=== PATIENT | female | born 1955 | race Caucasian/White ===

== ENCOUNTER 2017-11-12 08:55 | Emergency (ER) | payer OTHER ==
[~2017-11-12] VITALS: Ht 165.1 cm; Wt 60.0 kg
[2017-11-12 09:03] VITALS: TEMP 36.4; Ht 165.1 cm; Wt 60.0 kg
[2017-11-12 09:06] VITALS: O2SAT 100
[2017-11-12] MEDS ORDERED: MECLIZINE HCL 25 MG TAB PO STA (09:43)
--- NOTE | 2017-11-12 09:44 | EMERGENCY ROOM VISIT NOTE ---
History Report prepared by Shannen: Harshal Goldberg Under the Supervision of: Dr. Slime Stone M.D. First contact with patient: 09:13 Chief Complaint: DIZZY Stated Complaint: DIZZY, NOT FEELING WELL Nursing Triage Summary: pt reports sudden onset of dizziness, shaking and feeling like she was going to pass out at approx 0830 today while sitting eating cereal. pt reports she did not pass out. pt reports "i just don't feel like myself." History of Present Illness The patient is a 62 year old female who presents to the Emergency Room with complaints of sudden dizziness occurring around 0800 this morning while sitting and eating cereal. The patient states that she is still feeling dizzy and light headed. She says that she was seeing stars and was about to pass out, though she did not lose consciousness. The patient denies any palpitations, shortness of breath, recent travel, recent surgeries, history of blood clots, history of strokes, history of heart attacks, hematochezia, difficulty urinating, fever, chills, nausea, vomiting, and weakness. The patient states that she has no medical problems, and she has never had a stress test done. She reports that she fainted 3-4 months ago, and she states that she exercises daily. The patient has a history of osteoporosis and skin cancer on her face though was removed. She takes a baby aspirin daily. Source of History: patient Onset: 0800 Position: other (global) Quality: other (dizziness) Timing: other (sudden) Associated Symptoms: No LOC, No fevers, No chills, No SOB, No hematochezia Review of Systems See HPI for pertinent positives & negatives. A total of 10 systems reviewed and were otherwise negative. Past Medical & Surgical Medical Problems: (1) Osteoporosis (2) Skin cancer Family History Patient reports no known family medical history. Social History Smoking Status: Never Smoker Marital Status: Housing Status: lives with family Occupation Status: unemployed Current/Historical Medications Scheduled Aspirin (Aspirin Ec), 81 MG PO DAILY Biotin (Biotin), 2 TAB PO THUR Denosumab (Prolia), 6 MG INJ TWICE YEAR Oyster Shell (Calcium), 500 MG PO BID Scheduled PRN Meclizine HCl (Meclizine HCl), 1 TAB PO TID PRN for vertigo Allergies Coded Allergies: No Known Allergies (Unverified , 11/12/17) Physical Exam Vital Signs Date Time Temp Pulse Resp B/P (MAP) Pulse Ox O2 Delivery O2 Flow Rate FiO2 11/12/17 13:02 72 18 144/76 95 Room Air 11/12/17 11:58 78 18 131/69 95 Room Air 11/12/17 10:39 72 18 144/75 95 Room Air 11/12/17 09:56 73 152/83 72 129/67 72 117/73 11/12/17 09:07 78 11/12/17 09:06 100 Room Air 11/12/17 09:03 36.4 78 18 140/118 99 Room Air Physical Exam Vital signs reviewed. General: Well-appearing female, in no significant distress. HEENT: No scleral icterus, PERRLA, neck supple. Atraumatic. Cardiovascular: Regular rate and rhythm, no extra sounds. Pulmonary: Clear to auscultation bilaterally, normal work of breathing. Abdomen: Soft, nontender, nondistended, positive bowel sounds. Musculoskeletal: Atraumatic, no peripheral edema. Neurologic: Patient awake alert and oriented x 3, full strength in all 4 extremities. Cranial nerves 2 through 12 grossly intact. Skin: Warm, dry, no rash Medical Decision & Procedures ER Provider Diagnostic Interpretation: Radiology results as stated below per my review and radiologist interpretation: CHEST ONE VIEW PORTABLE CLINICAL HISTORY: dizzy, near syncope dyspnea COMPARISON STUDY: No previous studies for comparison. FINDINGS: The bones soft tissues and hemidiaphragms are normal. The cardiomediastinal silhouette is normal. The lungs are clear. The pulmonary vasculature is normal. IMPRESSION: Negative chest. The above report was generated using voice recognition software. It may contain grammatical, syntax or spelling errors. Electronically signed by: Davy Blanco M.D. 11/12/2017 9:58 AM Dictated Date/Time: 11/12/2017 9:[address]AST CT DOSE: 537.48 mGy.cm HISTORY: dizzy, right facial numbness TECHNIQUE: Multiaxial CT images of the head were performed without the use of intravenous contrast. Automated exposure control was utilized for this study. A dose lowering technique was utilized adhering to the principles of ALARA. Comparison: None. Findings: Moderate mucosal thickening within the right sphenoid sinus. The mastoid air cells are clear. The calvarium and skull base are intact. The ventricles and sulci are within normal limits. There is no mass, hematoma, midline shift, or acute infarct. Impression: No acute intracranial abnormality. Electronically signed by: Cedric Pelaez M.D. 11/12/2017 10:35 AM Dictated Date/Time: 11/12/2017 10:30 AM Laboratory Results 11/12/17 09:20 Red Blood Count 3.89, Mean Corpuscular Volume 93.1, Mean Corpuscular Hemoglobin 31.9, Mean Corpuscular Hemoglobin Concent 34.3, Mean Platelet Volume 8.8, Neutrophils (%) (Auto) 46.7, Lymphocytes (%) (Auto) 40.4, Monocytes (%) (Auto) 9.0, Eosinophils (%) (Auto) 3.2, Basophils (%) (Auto) 0.7, Neutrophils # (Auto) 1.87, Lymphocytes # (Auto) 1.62, Monocytes # (Auto) 0.36, Eosinophils # (Auto) 0.13, Basophils # (Auto) 0.03 11/12/17 09:20 Test 11/12/17 09:20 11/12/17 09:49 11/12/17 09:55 11/12/17 11:04 White Blood Count 4.01 K/uL (4.8-10.8) Red Blood Count 3.89 M/uL (4.2-5.4) Hemoglobin 12.4 g/dL (12.0-16.0) Hematocrit 36.2 % (37-47) Mean Corpuscular Volume 93.1 fL (80-100) Mean Corpuscular Hemoglobin 31.9 pg (25-34) Mean Corpuscular Hemoglobin Concent 34.3 g/dl (32-36) Platelet Count 243 K/uL (130-400) Mean Platelet Volume 8.8 fL (7.4-10.4) Neutrophils (%) (Auto) 46.7 % Lymphocytes (%) (Auto) 40.4 % Monocytes (%) (Auto) 9.0 % Eosinophils (%) (Auto) 3.2 % Basophils (%) (Auto) 0.7 % Neutrophils # (Auto) 1.87 K/uL (1.4-6.5) Lymphocytes # (Auto) 1.62 K/uL (1.2-3.4) Monocytes # (Auto) 0.36 K/uL (0.11-0.59) Eosinophils # (Auto) 0.13 K/uL (0-0.5) Basophils # (Auto) 0.03 K/uL (0-0.2) RDW Standard Deviation 40.9 fL (36.4-46.3) RDW Coefficient of Variation 12.1 % (11.5-14.5) Immature Granulocyte % (Auto) 0.0 % Immature Granulocyte # (Auto) 0.00 K/uL (0.00-0.02) Anion Gap 9.0 mmol/L (3-11) Est Creatinine Clear Calc Drug Dose 68.2 ml/min Estimated GFR () 95.9 Estimated GFR (Non- 82.8 BUN/Creatinine Ratio 22.1 (10-20) Calcium Level 8.4 mg/dl (8.5-10.1) Magnesium Level 1.7 mg/dl (1.8-2.4) Total Bilirubin 0.7 mg/dl (0.2-1) Direct Bilirubin 0.1 mg/dl (0-0.2) Aspartate Amino Transf (AST/SGOT) 23 U/L (15-37) Alanine Aminotransferase (ALT/SGPT) 25 U/L (12-78) Alkaline Phosphatase 49 U/L (45-117) Total Creatine Kinase 79 U/L (26-192) Creatine Kinase MB 0.7 ng/ml (0.5-3.6) Creatine Kinase MB Ratio 0.9 (0-3.0) Troponin I < 0.015 ng/ml (0-0.045) Total Protein 6.8 gm/dl (6.4-8.2) Albumin 3.4 gm/dl (3.4-5.0) Thyroid Stimulating Hormone (TSH) 3.340 uIu/ml (0.300-4.500) Bedside Troponin I < 0.030 ng/ml (0-0.045) Influenza Type A Antigen Neg for Influ A (NEG) Influenza Type B Antigen Neg for Influ B (NEG) Urine Color YELLOW Urine Appearance CLEAR (CLEAR) Urine pH 8.5 (4.5-7.5) Urine Specific [place] 1.008 (1.000-1.030) Urine Protein NEG (NEG) Urine Glucose (UA) NEG (NEG) Urine Ketones NEG (NEG) Urine Occult Blood NEG (NEG) Urine Nitrite NEG (NEG) Urine Bilirubin NEG (NEG) Urine Urobilinogen NEG (NEG) Urine Leukocyte Esterase NEG (NEG) Laboratory results per my review. Medications Administered Medications (Trade) Dose Ordered Sig/Alex Route Start Time Stop Time Status Last Admin Dose Admin Meclizine HCl (Antivert Tab) 25 mg NOW STAT PO 11/12/17 09:43 11/12/17 09:44 DC 11/12/17 09:59 25 MG Potassium Chloride (Klor-Con M10) 40 meq NOW STAT PO 11/12/17 10:40 11/12/17 10:41 DC 11/12/17 10:59 40 MEQ Magnesium Sulfate (Magnesium Sulfate) 2 gm NOW STAT IV 11/12/17 10:40 11/12/17 10:41 DC 11/12/17 10:59 2 GM ECG Indication: other (dizziness) Rate (beats per minute): 75 Rhythm: normal sinus Findings: no acute ischemic change, no ectopy Change: Patient's electrocardiogram interpreted by me. ED Course 912: Past medical records reviewed. The patient was evaluated in room A4. A complete history and physical examination was performed. 0943: Antivert Tab 25mg PO 1040: Magnesium Sulfate 2gm IV, Potassium Chloride 40meq PO 1305: Upon reevaluation, the patient appeared to have improvement of her symptoms. I discussed findings with her. She verbalized agreement of the treatment plan. She was discharged home. Medical Decision Differential diagnosis: Etiologies such as benign positional vertigo, dehydration, hypovolemia, anemia, tumor, infection, hypoglycemia, electrolyte abnormalities, cardiac sources, intracerebral event, toxicologic, neurologic, as well as others were entertained. This patient was evaluated and appeared to be in no significant distress. IV access was obtained and laboratory work was drawn. The patient was placed on the zipper setter lockstitch. She was given meclizine by mouth and Zofran IV. Patient' s laboratory work reveals hypokalemia and hypomagnesemia. These electrolytes were repleted. Patient complained of forehead pressure and headache, numbness to the right side of the face. CT scan of the head was performed and reveals no acute intracranial abnormality. Patient was feeling much improved on reevaluation. I suspect she is suffering from vertigo. She was advised to maintain a higher potassium diet and discharged with a prescription for meclizine to be used as needed. She'll follow-up with her physician for reevaluation return to the ER for worsening of symptoms or any medical concerns. Medication Reconcilliation Current Medication List: was personally reviewed by me Blood Pressure Screening Patient's blood pressure: Elevated blood pressure Blood pressure disposition: Elevated BP felt to be situational Impression Primary Impression: Vertigo Additional Impression: Hypokalemia Scribe Attestation The scribe's documentation has been prepared under my direction and personally reviewed by me in its entirety. I confirm that the note above accurately reflects all work, treatment, procedures, and medical decision making performed by me. Departure Information Dispostion Home / Self-Care Prescriptions Meclizine HCl (Meclizine HCl) 25 Mg Tab 1 TAB PO TID Y for vertigo, #20 TAB Prov: Slime Stone M.D. 11/12/17 Referrals Micheal Leggett M.D. (PCP) Forms HOME CARE DOCUMENTATION FORM, IMPORTANT VISIT INFORMATION Patient Instructions ED Diet High Potassium, My [facility], Vertigo Paroxysmal Positional Additional Instructions Diagnosis: Hypokalemia, vertigo Eat a diet high in potassium. Meclizine 25 mg 3 times a day as needed for vertigo. Drink plenty of clear fluids. Follow-up with your physician this week for reevaluation. Return to the ER for worsening of symptoms or any medical concerns. Problem Qualifiers
[2017-11-12 09:51] LABS: BASO % 0.7 %; BASO ABS # 0.03 K/uL (0-0.2); EOS % 3.2 %; EOS ABS # 0.13 K/uL (0-0.5); HEMATOCRIT 36.2 % (37-47); HEMOGLOBIN 12.4 g/dL (12.0-16.0); LYMPH % 40.4 %; LYMPH ABS # 1.62 K/uL (1.2-3.4); MEAN CELL VOLUME 93.1 fL (80-100); MEAN CORPUSCULAR HEMOGLOBIN 31.9 pg (25-34); MEAN CORPUSCULAR HGB CONC 34.3 g/dl (32-36); MEAN PLATELET VOLUME 8.8 fL (7.4-10.4); MONO ABS # 0.36 K/uL (0.11-0.59); NEUT % 46.7 %; NEUT ABS # 1.87 K/uL (1.4-6.5); PLATELET COUNT 243 K/uL (130-400); RED CELL DISTRIBUTION WIDTH CV 12.1 % (11.5-14.5); RED CELL DISTRIBUTION WIDTH SD 40.9 fL (36.4-46.3); WHITE BLOOD COUNT 4.01 K/uL (4.8-10.8)
--- NOTE | 2017-11-12 10:00 | DIAGNOSTIC IMAGING REPORT ---
CHEST ONE VIEW PORTABLE CLINICAL HISTORY: dizzy, near syncope dyspnea COMPARISON STUDY: No previous studies for comparison. FINDINGS: The bones soft tissues and hemidiaphragms are normal. The cardiomediastinal silhouette is normal. The lungs are clear. The pulmonary vasculature is normal. IMPRESSION: Negative chest. The above report was generated using voice recognition software. It may contain grammatical, syntax or spelling errors. Electronically signed by: Davy Blanco M.D. 11/12/2017 9:58 AM Dictated Date/Time: 11/12/2017 9:58 AM
[2017-11-12 10:08] LABS: ALBUMIN 3.4 gm/dl (3.4-5.0); ALT/SGPT 25 U/L (12-78); BLOOD UREA NITROGEN 17 mg/dl (7-18); CALCIUM 8.4 mg/dl (8.5-10.1); CARBON DIOXIDE 23 mmol/L (21-32); CREATININE 0.77 mg/dl (0.60-1.20); GLUCOSE 83 mg/dl (70-99); POTASSIUM 3.1 mmol/L (3.5-5.1); SODIUM 130 mmol/L (136-145)
[2017-11-12 10:19] LABS: ALKALINE PHOSPHATASE 49 U/L (45-117); AST/SGOT 23 U/L (15-37); CKMB 0.7 ng/ml (0.5-3.6); TOTAL PROTEIN 6.8 gm/dl (6.4-8.2)
--- NOTE | 2017-11-12 10:36 | DIAGNOSTIC IMAGING REPORT ---
HEAD CT NONCONTRAST CT DOSE: 537.48 mGy.cm HISTORY: dizzy, right facial numbness TECHNIQUE: Multiaxial CT images of the head were performed without the use of intravenous contrast. Automated exposure control was utilized for this study. A dose lowering technique was utilized adhering to the principles of ALARA. Comparison: None. Findings: Moderate mucosal thickening within the right sphenoid sinus. The mastoid air cells are clear. The calvarium and skull base are intact. The ventricles and sulci are within normal limits. There is no mass, hematoma, midline shift, or acute infarct. Impression: No acute intracranial abnormality. Electronically signed by: Cedric Pelaez M.D. 11/12/2017 10:35 AM Dictated Date/Time: 11/12/2017 10:30 AM
[2017-11-12 10:38] LABS: INFLUENZA B ANTIGEN Neg for Influ B (NEG)
[2017-11-12] MEDS ORDERED: POTASSIUM CHLORIDE 10 MEQ TABCR PO STA (10:40)
[2017-11-12] MEDS ORDERED: MAGNESIUM SULFATE 1GM / D5W 1 GM BAG IV STA (10:40)
[2017-11-12] MEDS ORDERED: DNSIS60 INJ (10:50)
[2017-11-12] MEDS ORDERED: ASPI81TA28 PO (10:52)
[2017-11-12] MEDS ORDERED: BIOT50006 PO (10:54)
[2017-11-12] MEDS ORDERED: OYST500T47 PO (10:54)
[2017-11-12 13:02] VITALS: BP 144/76; PULSE 72; O2SAT 95
[2017-11-12] MEDS ORDERED: ANT25 PO (13:15)
== END 2017-11-12 13:24 | disposition home or self-care (01) ==
LOC: C.EDB 08:56 → C.EDA 13:24
DX: R42 Dizziness and giddiness (principal); E87.6 Hypokalemia; M81.0 Age-related osteoporosis without current pathological fracture; Z79.82 Long term (current) use of aspirin

== ENCOUNTER → 2017-12-08 | Outpatient (CLI) | payer OTHER ==
[~2017-12-08] MED LIST: ANT25 PO; ASPI81TA28 PO; BIOT50006 PO; DNSIS60 INJ; OYST500T47 PO
[2017-12-08 10:22] LABS: ALBUMIN 3.8 gm/dl (3.4-5.0); ALKALINE PHOSPHATASE 65 U/L (45-117); ALT/SGPT 27 U/L (12-78); AST/SGOT 19 U/L (15-37); CALCIUM 9.6 mg/dl (8.5-10.1); CREATININE 0.82 mg/dl (0.60-1.20); TOTAL PROTEIN 7.5 gm/dl (6.4-8.2)
== END | disposition home or self-care (01) ==
LOC: C.LAB1850 08:07
PROVIDERS: ATTEND Internal Medicine Rheumatology
DX: E61.8 Deficiency of other specified nutrient elements (principal); M81.0 Age-related osteoporosis without current pathological fracture; E55.9 Vitamin D deficiency, unspecified

== ENCOUNTER → 2017-12-14 | Outpatient (CLI) | payer OTHER | END | disposition home or self-care (01) | LOC: C.MAMM 08:08 | PROVIDERS: ATTEND Internal Medicine Rheumatology | DX: M81.0 Age-related osteoporosis without current pathological fracture (principal); E55.9 Vitamin D deficiency, unspecified; E61.8 Deficiency of other specified nutrient elements ==

== ENCOUNTER 2025-05-30 08:48 | Observation (INO) ==
--- NOTE | 2025-05-08 12:40 | PAT Medication Instructions ---
Medication Instructions Date of Service May 08, 2025 Home Medications biotin 1 mg tablet 0 mg PO DAILY calcium 500 mg (as carbonate)-vitamin D3 10 mcg (400 unit) tablet (Calcium 500 With D) 1 tab PO DAILY denosumab 60 mg/mL subcutaneous syringe (Prolia) 0 mg subcut .TWICE YEAR naproxen sodium 220 mg capsule (Aleve) 220 - 440 mg PO BID PRN Pain aspirin 81 mg tablet,delayed release 81 mg PO DAILY magnesium 30 mg tablet 30 mg PO DAILY azelastine 137 mcg (0.1 %) nasal spray 2 spray intranasal DAILY PRN Allergy Symptoms acetaminophen 500 mg tablet (Acetaminophen Extra Strength) 500 mg PO Q6H PRN Pain minoxidil 2.5 mg tablet 1.25 mg PO DAILY vitamin K 1 tab PO DAILY MEDICATION INSTRUCTIONS: Continue as directed denosumab 60 mg/mL subcutaneous syringe (Prolia) 0 mg subcut .TWICE YEAR azelastine 137 mcg (0.1 %) nasal spray 2 spray intranasal DAILY PRN Allergy Symptoms ASK your surgeon for instructions naproxen sodium 220 mg capsule (Aleve) 220 - 440 mg PO BID PRN Pain vitamin K 1 tab PO DAILY ASK your prescriber and surgeon aspirin 81 mg tablet,delayed release 81 mg PO DAILY STOP taking 2 weeks before surgery biotin 1 mg tablet 0 mg PO DAILY DO NOT take the morning of surgery magnesium 30 mg tablet 30 mg PO DAILY calcium 500 mg (as carbonate)-vitamin D3 10 mcg (400 unit) tablet (Calcium 500 With D) 1 tab PO DAILY Take morning of surgery With a small sip of water, OTHERWISE NOTHING TO EAT OR DRINK AFTER MIDNIGHT: minoxidil 2.5 mg tablet 1.25 mg PO DAILY acetaminophen 500 mg tablet (Acetaminophen Extra Strength) 500 mg PO Q6H PRN Pain Take evening before surgery acetaminophen 500 mg tablet (Acetaminophen Extra Strength) 500 mg PO Q6H PRN Pain Other Notes If you have any questions please call us at [phone] or [phone] or [phone] or [phone]
--- NOTE | 2025-05-15 13:00 | Anesthesiology Consultation ---
Date of Service May 15, 2025 Assessment & Plan (1) Encounter for pre-operative examination: - Outpatient joint assessment: Patient is currently scheduled for inpatient pathway. If re-evaluated and patient/surgeon requests outpatient pathway, patient is acceptable candidate for outpatient joint program from anesthesia standpoint pending surgeon's office assessment of pt motivation/support/completion of same day joint program preop requirements. Chart Review Chart Review: Acceptable Risk for Surgery and Patient seen in Pre Admission Testing Teaching & Discussion Pre-Anesthesia Teaching/Discussion Notes: Instructed NPO after midnight before surgery, except medications with 15 cc of water. Medication instructions provided according to the PAT guidelines. History Surgery Operation Date: 05/30/25 08:50 Proposed Procedures p Right Total Knee Arthroplasty - Torey Vallejo MD Height/Weight Height: 5 ft 5 in Weight: 62.7 kg Allergies Allergy/AdvReac Type Severity Reaction Status Date / Time No Known Drug Allergies Allergy Verified 05/08/25 08:53 Medications Home Medications Medication Instructions Recorded Confirmed Last Taken biotin 1 mg tablet 0 mg PO DAILY 03/29/20 05/08/25 Unknown calcium 500 mg (as 1 tab PO DAILY 03/29/20 05/08/25 Unknown carbonate)-vitamin D3 10 mcg (400 unit) tablet (Calcium 500 With D) denosumab 60 mg/mL subcutaneous 0 mg subcut .TWICE YEAR 03/29/20 05/08/25 Unknown syringe (Prolia) naproxen sodium 220 mg capsule 220 - 440 mg PO BID PRN Pain 03/29/20 05/08/25 Unknown (Aleve) aspirin 81 mg tablet,delayed 81 mg PO DAILY 08/15/21 05/08/25 Unknown release magnesium 30 mg tablet 30 mg PO DAILY 08/15/21 05/08/25 Unknown azelastine 137 mcg (0.1 %) nasal 2 spray intranasal DAILY PRN 04/14/25 05/08/25 Unknown spray Allergy Symptoms acetaminophen 500 mg tablet 500 mg PO Q6H PRN Pain 05/08/25 05/08/25 Unknown (Acetaminophen Extra Strength) minoxidil 2.5 mg tablet 1.25 mg PO DAILY 05/08/25 05/08/25 Unknown vitamin K 1 tab PO DAILY 05/08/25 05/08/25 Unknown Past Medical History Medical History Anxiety Dyslipidemia no meds History of COVID-19 (2019) no hosp; resolved History of Mohs micrographic surgery for skin cancer (02/2025) History of skin cancer scalp Knee pain last gel injection 01/2025 Osteoporosis Seasonal allergies Patient denies h/o stroke, seizures, heart attack, heart failure, DM, HTN, blood clots/DVTs or blood transfusions. Exercise / Class Metabolic Activity II 4-5 Yardwork/Stairs/Walk up hill (denies chest discomfort or shortness of breath with one flight of stairs) Past Surgical History Surgical History (Updated 05/15/25 @ 13:11 by Fannie Han PA-C) History of ankle surgery (1977) right ankle fracture Hx of colonoscopy Hx of tooth extraction Past Anesthesia History No Hx of Anesthesia Complications and No Family Hx of Anesthesia Complications History of PONV No Hx of PONV and No Hx of Motion Sickness Social History Smoking Status: Never smoker Do You Dip or Chew Tobacco: No Hx Alcohol Use: Yes alcohol intake frequency: a few times a week Hx Substance Use: No substance use type: does not use Review of Systems Snoring, denies witnessed apneas. Patient denies chest pain, shortness of breath, dyspnea on exertion, reflux, fever, chills, cough, wheezing, or palpitations. Physical Exam Vital Signs Vitals BP 125/73 P 76 TEMP 98.0 SP02 98% on RA RESP 18 Physical Patient resting comfortably in chair in no acute distress, alert and oriented, responding appropriately throughout visit Full cervical extension range of motion without pain TMD 3.5 finger breadths Mallampati Score 2 Dentition: several crowns, denies chipped or loose teeth, caps, implants or bridges Lungs: normal respiratory effort. Good air movement, clear throughout to auscultation, no adventitious breath sounds Cardiac: regular rate and rhythm, no murmurs noted Carotid arteries: negative bruit bilat Lab Results Anesthesia Preop Results Results Anesthesia Widget: WBC 4.86 K/ul (4.8-10.8) 05/15/25 Hgb 12.6 g/dl (12.0-16.0) 05/15/25 Hct 37.9 % (37.0-47.0) 05/15/25 Plt 295 K/uL (130-400) 05/15/25 Na 141 mmol/L (136-145) 05/15/25 K 4.0 mmol/L (3.5-5.1) 05/15/25 Cl 107 mmol/L (98-107) 05/15/25 CO2 26 mmol/L (21-32) 05/15/25 BUN 18 mg/dl (6-23) 05/15/25 Creat 0.74 mg/dl (0.6-1.2) 05/15/25 Glucose Level 90 mg/dl (70-99(Fasting)) 05/15/25 PT 9.9 Seconds (9.0-12.0) 05/15/25 PTT 25 Seconds (21-31) 05/15/25 INR 0.9 (0.9-1.1) 05/15/25 Blood Type O Positive 05/15/25 Antibody Screen NEGATIVE 05/15/25 Testing Electrocardiogram Date: 05/15/25 NSR, rate 70 bpm Chest X-Ray Date: 05/15/25 No active disease in the chest.
[~2025-05-30 08:48] MED LIST changes: -ANT25 PO; -ASPI81TA28 PO; -BIOT50006 PO; +BUPIVACAINE 0.5 % 5 MG/1 ML PF 10ML VIAL ONE; -DNSIS60 INJ; -OYST500T47 PO; +ROPIVACAINE 0.5% 5 MG/ML 30 ML VIAL ONE
--- NOTE | 2025-05-30 09:20 | History & Physical Bridge Note ---
Date of Service May 30, 2025 History & Physical Bridge Note I have examined the patient, reviewed the History & Physical and in the interval since the performance of the History & Physical I have noted the following changes of clinical significance: no changes noted
[2025-05-30] MEDS: LR 500ML BOLUS, THEN 15ML/HR IV SCH (09:27)
[2025-05-30] MEDS: ACETAMINOPHEN 500 MG TAB PO SCH ×2 (09:28→14:45)
[2025-05-30] MEDS: CeleBREX 200 MG CAP PO SCH (09:29)
[2025-05-30] MEDS: FAMOTIDINE 20 MG TAB PO SCH (09:29)
[2025-05-30] MEDS: METOCLOPRAMIDE HCL 10 MG TABLET PO SCH (09:29)
[2025-05-30] MEDS: dexAMETHasone**PF** 10 MG/ML VIAL IV SCH (09:30)
[2025-05-30] MEDS ORDERED: PROMETHAZINE HCL 6.25 MG in SODIUM CHLORIDE 0.9% 50 ML IV PRN (09:43)
[2025-05-30] MEDS ORDERED: ATROPINE SULFATE 0.1 MG/ML 10ML SYR IV PRN (09:43)
[2025-05-30] MEDS ORDERED: HYDROmorphone INJ 2 MG/ML SYR/VIAL IV PRN (09:43)
[2025-05-30] MEDS ORDERED: MIDAZOLAM HCL 1 MG/ML 2ML VIAL ONE (09:59)
[2025-05-30] MEDS ORDERED: PROPOFOL IV EMULSION 10 MG/ML 100 ML VIAL IV ONE (09:59)
[2025-05-30] MEDS ORDERED: LIDOCAINE 2% 2 ML VIAL/AMP(20MG/ML) INFIL ONE (09:59)
[2025-05-30] MEDS: LR 60ML/HR IV SCH (11:35)
[2025-05-30] MEDS ORDERED: PROPOFOL IV EMULSION 10 MG/ML 20 ML VIAL IV ONE (12:14)
[2025-05-30] MEDS ORDERED: ONDANSETRON INJ 2 MG/ML 2 ML VIAL ONE (12:24)
[2025-05-30] MEDS: ORTHO JOINT ANESTHETIC ONE (12:25)
[2025-05-30] MEDS: ROPIV 0.5% 246mg, Ketorolac 30mg, EPINEPHrine 0.5mg in NSS INFIL SCH (12:25)
--- NOTE | 2025-05-30 13:37 | Operative Report ---
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 I identified the patient and participated in the time-out.: Yes Procedure Operation Date: 05/30/25 10:40 Right total knee arthroplasty Surgeon Torey Vallejo MD Cloth Weigher Chacorta Wooten PA-C Estimated Blood Loss 50 Findings Consistent with Post-Op Diagnosis Specimens Right knee sent for pathology. Anesthesia Type Spinal MAC Complications none Disposition Accompanied Patient To Recovery: No Indications The patient is a 70-year-old female with a centimeter history of increasing right knee pain discomfort which became less responsive to conservative care. She had recurrent significant swelling. X-rays show progressive medial femoral condyle avascular porosis with collapse of the joint space. She elected for with surgical treatment. Description of Procedure Operative implants consisted of: 1 Biomet Vanguard size 65 right posterior stabilized femoral component. 2. Biomet size 67 tibial tray. 3. 10 mm posterior stabilized polyethylene insert. 4. 28 x 8 all poly patella. The patient was taken to the op room, identified, placed on the operating table in the supine position. A spinal anesthetic and adductor canal block had been provided in the holding area. All conductors were appropriately padded. IV antibiotics were provided by the anesthesia team. A Freitas catheter was placed in sterile fashion. A right thigh tourniquet was then placed. The right lower extremity was then prepped and draped in usual sterile fashion. The right leg was elevated exsanguinated with use of an Esmarch and a turn was placed at 300 mmHg. An anterior approach of the right knee was then performed to longitudinal incision centered over the patella. Sharp dissection was carried through subcutaneous tissue down the extensor mechanism. A medial parapatellar arthrotomy incision was made. Some subperiosteal dissection was carried out medially. The fat pad was resected from the patella tendon. The lateral patellofemoral ligament was released. The patella was subluxated laterally and the knee was flexed. The osteophytes taken off distal femur. The ACL and PCL were then released from distal femur and the tibia subluxated anteriorly. The external tibial LYMErix then placed on the anterior face of the tibia and adjusted 12 mm medially. The proximal tibial cut was made to remove about 2 to 3 mm of bone from the medial side. The tibia sized to a size 67. Attention drawn the femur. The distal femur was then of the sharp drill. Intramedullary canal was suction. Right 5 degree valgus cutting guide was placed. The distal femoral cutting block was pinned in place. The distal femoral cut was made to take an additional 3 mm of bone off distal femur. The femur was then sized to a size 65. The AP cutting block was pinned parallel to the epicondylar axis which was 4 degrees of external rotation. The anterior cut, anterior chamfer, posterior cut, posterior chamfer cuts were made. The box cutting guide was placed and adjusted slightly laterally. The box cut was made. The knee was flexed. The remnants of the medial and lateral menisci were excised. The osteophytes taken off the posterior aspect of femur. A trial femoral component was placed. The tibial tray was pinned in Shea external rotation and the drill and stem punch used. Defect in the proximal tibia for the tibial tray. Knee was then trialed and the 10 mm insert fit most appropriately. Attention drawn the patella. The patella was cleaned of all soft tissues. Patella thickness measured 21 mm in thickness was cut down to 13. Was sized to a size 28 patella. The lug holes were drilled for the 28 patella. The lateral osteophytes removed. The patella button was placed. Knee was taken through range of motion patella tracked nicely with no thumbs test. Attention then drawn to place the permanent components. NuPrep all trial components were removed. Bone plug was placed in the distal femur limit blood loss. A double batch of Palacos G cement was mixed. Biomet Vanguard size 65 right posterior stabilized femoral component, size 67 tibial tray, 10 mm posterior stabilized polyethylene insert, and a 28 x 8 all poly patella then cemented in place. The knee was brought out into full extension till cement hardened. Final cement check was then performed. The pericapsular tissues were injected with total 100 cc of Ortho mix. The patient did receive 1 g tranexamic acid. The tourniquet was then let down for final tourniquet time 50 minutes. Hemostasis carriages electrocautery. Extensor Metros then closed with combination 1 PDS suture and the 1 Vicryl suture in a [id number] fashion. Extensor Meclomen checked found to be intact the subcutaneous tissue then closed with 2 Dexon suture in a buried interrupted fashion skin was closed skin humberto. Leg was then cleaned and dried and a sterile dressing with Xeroform, 4 fours, sterile cast padding, Parish bandage were applied. The patient then transferred to the recovery room in stable condition. Patient tolerated the procedure well and there were no complications. Chacorta Wooten, my physician judicial administrative assistant, was present for the entire procedure. His assistance was required for proper patient positioning, prepping and draping, surgical exposure, retraction, perform the technical details of the operation, placement of the implants, closure of the incision site, and placement of p ostoperative sterile bandage. I attest to the content of the Intraoperative Record and any orders documented therein. Any exceptions are noted below.
--- NOTE | 2025-05-30 14:05 | XRay Report ---
XR knee RT 1 or 2V routine CLINICAL HISTORY: Surgical Post Op COMPARISON: 01/17/2025 FINDINGS: Right knee prosthesis shows no hardware complication. There is expected soft tissue gas. S kin humberto are present. IMPRESSION: Unremarkable postoperative exam. ACT 112: Negative or not required by law. Electronically signed by: Juan Daniel Urban M.D. 05/30/2025 2:04 PM
[2025-05-30] MEDS: SODIUM CHLORIDE 0.9% 1,000 ML IV SCH (14:25)
[2025-05-30] MEDS ORDERED: ACETAMINOPHEN 1,000 MG/100 ML VIAL IV PRN (14:25)
[2025-05-30] MEDS ORDERED: ONDANSETRON INJ 2 MG/ML 2 ML VIAL IV PRN (14:25)
[2025-05-30] MEDS ORDERED: ONDANSETRON 4 MG OD TAB PO PRN (14:25)
[2025-05-30] MEDS ORDERED: diphenhydrAMINE Capsule 25 MG CAP PO PRN (14:25)
[2025-05-30] MEDS ORDERED: METOCLOPRAMIDE HCL INJ 5 MG/ML 2 ML VIAL IV PRN (14:25)
[2025-05-30] MEDS ORDERED: HYDROmorphone INJ 0.5 MG/0.5 ML SYR IV PRN (14:25)
[2025-05-30] MEDS ORDERED: NALOXONE HCL 0.4 MG/1 ML VIAL/CARP IV PRN (14:25)
[2025-05-30] MEDS ORDERED: MAGNESIUM HYDROXIDE SUSP 30 ML UDC PO PRN (14:25)
[2025-05-30] MEDS ORDERED: AZELASTINE HCL 0.1% NASAL 200 SPRAYS/27,400 MCG BTL NS PRN (14:25)
--- NOTE | 2025-05-30 14:29 | Anesthesiology Progress Note ---
Date of Service May 30, 2025 Anesthesia Post Procedure Vital Signs Vital Signs: Temp Pulse Pulse Resp BP Pulse Ox O2 Del Method 05/30/25 14:00 90 20 119/61 97 Room Air 05/30/25 13:50 36.5 C 95 H 13 118/58 L 97 Room Air 05/30/25 13:40 96 H 14 117/65 97 Room Air 05/30/25 13:33 36.7 C 94 H 11 L 125/63 97 Room Air 05/30/25 09:06 36.5 C 79 16 111/81 97 Room Air Transfer of Care Handoff Completed per policy Notes Mental Status: alert / awake / arousable and participated in evaluation Nausea / Vomiting: adequately controlled Pain: adequately controlled Airway Patency, RR, SpO2: stable & adequate BP & HR: stable & adequate Hydration State: stable & adequate Neuraxial Anesthesia: was administered and sensory block is resolving Anesthetic Complications: no major complications apparent and Pt Satisfied with anesthetic care
[2025-05-30] MEDS: ASCORBIC ACID 500 MG TAB PO SCH (16:06)
[2025-05-30] MEDS ORDERED: KETOROLAC TROMETHAMINE 10 MG TABLET PO SCH (18:00)
[2025-05-30] MEDS: TRANEXAMIC ACID / 0.7% NACL 1,000 MG/100 ML BAG IV SCH (19:56)
[2025-05-30] MEDS: DOCUSATE SODIUM 100 MG CAP PO SCH (20:27)
[2025-05-30] MEDS: KETOROLAC TROMETHAMINE 15 MG/ML VIAL IV SCH (20:27)
[2025-05-30] MEDS: SENNA 8.6 MG TAB PO SCH (20:27)
[2025-05-30] MEDS: ASPIRIN 81 MG ECTAB PO SCH (20:28)
[2025-05-30] MEDS ORDERED: SENNA 8.6 MG TAB PO SCH (21:00)
[2025-05-31 04:07] VITALS: O2SAT 98
[2025-05-31 07:13] VITALS: BP 122/66; PULSE 61; RESP 16; TEMP 97.9
[2025-05-31 07:32] LABS: Hematocrit (blood only) 33.9 % (37.0-47.0); Hemoglobin 11.5 g/dl (12.0-16.0); Mean Corpuscular Hemoglobin 31.5 pg (25.0-34.0); Mean Corpuscular Volume 92.9 fL (80.0-100.0); Platelet Count 316 K/uL (130-400); RDW Standard Deviation 40.8 fL (36.4-46.3); Red Blood Count 3.65 M/uL (4.20-5.40); White Blood Count 9.52 K/ul (4.8-10.8)
[2025-05-31 07:48] LABS: Anion Gap 7.0 (3-11); Blood Urea Nitrogen 14.0 mg/dl (6-23); Calcium 8.4 mg/dl (8.6-10.3); Carbon Dioxide 22.0 mmol/L (21-32); Chloride 112.0 mmol/L (98-107); Creatinine Clr Calc Pharmacy 58.2 ml/min; Glucose 89.0 mg/dl (70-99(Fasting)); Potassium 3.9 mmol/L (3.5-5.1); Sodium 141.0 mmol/L (136-145)
[2025-05-31] MEDS: MULTIVITAMIN TAB PO SCH (07:59)
[2025-05-31] MEDS: MAGNESIUM OXIDE 400 MG TAB PO SCH (07:59)
[2025-05-31] MEDS: CALCIUM 600MG + VIT D 400 IU TAB PO SCH (07:59)
[2025-05-31] MEDS: dexAMETHasone 10 MG in SYRINGE 0 ML IV SCH (08:00)
--- NOTE | 2025-05-31 08:23 | Orthopedic Progress Note ---
Date of Service May 31, 2025 Assessment & Plan (1) Status post total right knee replacement: * Continue Current Treatment * Disposition: home w/ PT * Daily treatment: Physical Therapy/ Occupational Therapy per protocol * Weight bearing status: WBAT * Continue to monitor for ABLA * Pain control * DVT prophylaxis, ASA * Office/hospital f/u 2 weeks for progress check and staple/suture removal * Plan for discharge today pending PT/OT clearance Subjective .Active Problems: S/p right TKA POD 1 70 y/o female s/p right TKA. Doing well overall, pain managed and improved function. Denies fever/chills, chest pain/SOB, nausea/vomiting. Otherwise no complaints. Review of Systems All systems reviewed & are unremarkable except as noted in HPI & below. Physical Exam . * General: Alert and oriented, no acute distress * Constitutional: well-developed, well-nourished. * Respiratory: Normal respiratory effort, no distress * Gastrointestinal: No tenderness to palpation, no rigidity or guarding. * Skin: No rash or lesion. * Neurologic: Grossly normal * Musculoskeletal: right knee surgical dressing CDI, not removed for exam. Otherwise no obvious deformity or overlying skin changes RLE. Diffuse TTP distal thigh and knee region. Otherwise no specific tenderness of proximal thigh, lower leg, foot/ankle. AROM knee flexion 100 degrees. AROM foot/ankle intact. Sensation intact plantar/dorsal foot. Brisk capillary refill. Results & Data Results & Data Laboratory Results . Diagnostic Findings . PG Care Time/CCT Total # of Minutes Spent Total Time Spent with Patient: Total time spent is greater than 50% in coordination of care (as documented) at patient's floor/unit and/or counseling patient: Coding Level of Care Code 43064 Post Operative Follow-Up Diagnoses Status post total right knee replacement Z96.651
[2025-05-31] MEDS ORDERED: VITAMIN K PO SCH (09:00)
== END 2025-05-31 11:05 | disposition home health service (06) ==
LOC: ASU 08:48 → 3E 08:48